=== PATIENT | male | born 1990 | race Hispanic/Latino ===

== ENCOUNTER 2017-05-24 14:28 | Emergency (ER) | payer SELFPAY ==
--- NOTE | 2017-05-24 15:22 | ED.PDOC ---
History of Present Illness - General Chief Complaint: Dental/Mouth Stated Complaint: dental pain Time Seen by Provider: 05/24/17 15:21 Source: patient, RN notes reviewed Additional Information: Pt seen by dentist yesterday, started on antibiotics. Plan is to have right molar/wisdom tooth removed on 05 June. Told by dentist to present to ED if tooth pain unbearable. Pt states it is hard to eat/drink due to the pain. He is tolerating his Abx (Amoxicillin). Pt states he has come here before for pain in another tooth and he was given a shot of Toradol and a Rx for T3 which helped with the pain. - History of Present Illness Timing/Duration: 1 week - worse since yesterday Severity: moderate Improving Factors: nothing Worsening Factors: eating, other - drinking liquids Associated Symptoms: denies symptoms Allergies/Adverse Reactions: Allergies NO KNOWN ALLERGY Allergy (Verified 05/06/16 20:13) Home Medications: Ambulatory Orders Acetamin W/Cod #3 Tab [Tylenol #3 Tab] 1 ea PO Q4-6H PRN #30 tab 05/24/17 Review of Systems - Review of Systems Constitutional: States: no symptoms reported EENTM: States: mouth pain - right lower molar region Respiratory: States: no symptoms reported Cardiology: States: no symptoms reported Gastrointestinal/Abdominal: States: no symptoms reported Genitourinary: States: no symptoms reported Musculoskeletal: States: no symptoms reported Skin: States: no symptoms reported Neurological: States: no symptoms reported Endocrine: States: no symptoms reported Hematologic/Lymphatic: States: no symptoms reported Past Medical History (General) - Patient Medical History Hx Asthma: No Hx Hypertension: No Hx Diabetes: No - Vaccination History Hx Tetanus, Diphtheria Vaccination: No Hx Influenza Vaccination: No Hx Pneumococcal Vaccination: No - Social History Hx Tobacco Use: Yes Hx Alcohol Use: Yes Hx Substance Use: No Hx Substance Use Treatment: No Hx Depression: No Family Medical History - Family History Mother Family History: Unknown Living Status: Unknown Physical Exam - Physical Exam General Appearance: Alert, Well Developed, Well Groomed, Well Hydrated, Well Nourished, Other - mild distress due to pain but he is able to cooperate with history and exam. Eye Exam: bilateral normal Ears, Nose, Throat: normal pharynx, other - right lower molar/wisdom tooth with decay Neck: non-tender, full range of motion, supple Respiratory: no respiratory distress, no accessory muscle use Cardiovascular/Chest: normal peripheral pulses, regular rate, rhythm Gastrointestinal/Abdominal: soft Extremity: normal range of motion, non-tender Neurologic: manager star II-XII nml as tested, no motor/sensory deficits, alert, normal mood/affect, oriented x 3 Skin Exam: normal color, other - mild soft tissue swelling around right inner cheek adjacent to site of dental caries. Lymphatic: no adenopathy Progress - Progress Progress: 05/24/17 16:32 Pt offered a dental block and he refused/declined. Pt given Toradol 60 mg IM x 1 instead and he is stable for discharge with Rx for T3. Departure - Departure Clinical Impression: Pain, dental Time of Disposition: 16:43 Disposition: Discharge to Home or Self Care Condition: Good Departure Forms: ED Discharge - Pt. Copy, Patient Portal Self Enrollment Instructions: DI for Dental Pain Prescriptions: Acetamin W/Cod #3 Tab [Tylenol #3 Tab] 1 ea PO Q4-6H PRN #30 tab PRN Reason: Pain -- Moderate To Severe Home Medications: Ambulatory Orders Acetamin W/Cod #3 Tab [Tylenol #3 Tab] 1 ea PO Q4-6H PRN #30 tab 05/24/17 Additional Instructions: Follow up with Dentist for definitive care.
[2017-05-24] MEDS ORDERED: HYDROcodone 5MG/APAP 325MG 1 EA TAB PO ONE (15:27)
[2017-05-24] MEDS ORDERED: KETOROLAC TROMETHAMINE INJ 60 MG/2 ML VIAL IM ONE (16:12)
[2017-05-24 17:37] VITALS: BP 129/79; TEMP 98.2; O2SAT 96
== END 2017-05-24 17:35 | disposition home or self-care (01) ==
LOC: ER 14:28
DX: K08.89 Other specified disorders of teeth and supporting structures (principal); Z87.891 Personal history of nicotine dependence

== ENCOUNTER 2017-05-24 23:07 | Emergency (ER) | payer SELFPAY ==
[2017-05-24] MEDS ORDERED: KETOROLAC TROMETHAMINE INJ 60 MG/2 ML VIAL IM ONE ×2 (23:16→23:23)
[2017-05-24] MEDS ORDERED: LIDOCAINE 1% 10 ML VIAL INJ ONE (23:16)
--- NOTE | 2017-05-24 23:24 | ED.PDOC ---
History of Present Illness - General Chief Complaint: Dental/Mouth Stated Complaint: Tooth pain Time Seen by Provider: 05/24/17 23:08 Source: patient, RN notes reviewed, Vital Signs reviewed Additional Information: Pt seen earlier today (see note for details). Pt returns to ED stating that the inferior alveolar block wore off and the pain is worse now. Pt in no apparent distress on exam. Pt told that the definitive management will still need to be from the Dentist extracting the tooth. All we can offer at this time is another Toradol 60 mg IM injection and another inferior alveolar block. Pt agreed with this plan and knows he is to continue taking his antibiotic and the T3 previously prescribed to him. - History of Present Illness Timing/Duration: 1 week, getting worse Severity: moderate Improving Factors: other - inferior alveolar block helped for 2 to 3 hours Worsening Factors: other - when the inferior alveolar block wore off Associated Symptoms: denies symptoms Allergies/Adverse Reactions: Allergies NO KNOWN ALLERGY Allergy (Verified 05/06/16 20:13) Home Medications: Ambulatory Orders Acetamin W/Cod #3 Tab [Tylenol #3 Tab] 1 ea PO Q4-6H PRN #30 tab 05/24/17 Review of Systems - Review of Systems Constitutional: States: no symptoms reported EENTM: States: mouth pain Respiratory: States: no symptoms reported Cardiology: States: no symptoms reported Gastrointestinal/Abdominal: States: no symptoms reported Genitourinary: States: no symptoms reported Musculoskeletal: States: no symptoms reported Skin: States: no symptoms reported Neurological: States: no symptoms reported Endocrine: States: no symptoms reported Hematologic/Lymphatic: States: no symptoms reported Past Medical History (General) - Patient Medical History Hx Stroke: No Hx Asthma: No Hx Cardiac Disorders: No Hx Congestive Heart Failure: No Hx Hypertension: No Hx Diabetes: No Hx Cancer: No Hx Hepatitis C: No - Vaccination History Hx Tetanus, Diphtheria Vaccination: No Hx Influenza Vaccination: No Hx Pneumococcal Vaccination: No - Social History Hx Tobacco Use: Yes Hx Chewing Tobacco Use: No Hx Alcohol Use: Yes Hx Substance Use: No Hx Substance Use Treatment: No Hx Depression: No Hx Physical Abuse: No Hx Emotional Abuse: No Hx Suspected Abuse: No Family Medical History - Family History Mother Family History: Unknown Living Status: Unknown Physical Exam - Physical Exam General Appearance: Alert, Comfortable, Well Developed, Well Groomed, Well Hydrated, Well Nourished, Other - mild discomfort noted but patient tolerated exam and procedure without difficulty Eye Exam: bilateral normal Ears, Nose, Throat: hearing grossly normal, other - Right lower molar (wisdom tooth) with obvious decay. Some adjacent soft tissue swelling - stable compared to exam several hours ago. Neck: non-tender, supple Respiratory: no respiratory distress Cardiovascular/Chest: regular rate, rhythm Gastrointestinal/Abdominal: non tender, soft Extremity: normal range of motion, non-tender Neurologic: hoseman II-XII nml as tested, no motor/sensory deficits, alert, normal mood/affect Skin Exam: normal color Lymphatic: no adenopathy Progress - Progress Progress: 05/24/17 23:36 Pt tolerated Toradol 60 mg IM x 1 and Inferior Alveolar Nerve Block reporting pain of 10/10 upon arrival and 5/10 five minutes after administration of inferior alveolar block. Pt advised to f/u with Dentist for definitive management. Departure - Departure Clinical Impression: Pain, dental Time of Disposition: 23:55 Disposition: Discharge to Home or Self Care Condition: Fair Departure Forms: ED Discharge - Pt. Copy, Patient Portal Self Enrollment Instructions: DI for Dental Pain Home Medications: Ambulatory Orders Acetamin W/Cod #3 Tab [Tylenol #3 Tab] 1 ea PO Q4-6H PRN #30 tab 05/24/17 Additional Instructions: Continue previously prescribed medications. Follow-up with Dentist for definitive management. Keep mouth rinsed clean with Listerine at least twice a day.
[2017-05-25 00:01] VITALS: BP 130/70; TEMP 98; O2SAT 95
== END 2017-05-24 23:58 | disposition home or self-care (01) ==
LOC: ER 23:07
DX: K08.89 Other specified disorders of teeth and supporting structures (principal); Z87.891 Personal history of nicotine dependence

== ENCOUNTER 2018-07-28 20:04 | Emergency (ER) | payer OTHER ==
[2018-07-28 20:27] VITALS: O2SAT 97
[2018-07-28] MEDS ORDERED: KETOROLAC TROMETHAMINE INJ 60 MG/2 ML VIAL IM ONE (20:39)
[2018-07-28] MEDS ORDERED: ORPHENADRINE CITRATE 30 MG/ML AMP IM ONE (20:39)
--- NOTE | 2018-07-28 20:50 | ED.PDOC ---
History of Present Illness - General Chief Complaint: Headache Stated Complaint: headache Time Seen by Provider: 07/28/18 20:38 Source: patient Exam Limitations: no limitations - History of Present Illness Initial Comments: C/O LEIVA X 3-4 DAYS. OCCIPITAL, CONSTANT, ONE EPISODE OF VOMITING. HAS NOT RESPONDED TO NSAIDS. OCC HAS LEIVA'S BUT OTC NSAIDS USUALLY PROVIDE GOOD RELIEF. NO HX OF TRAUMA Timing/Duration: other - 3 DAYS Quality: moderate Head Injury Location: occipital Recent Head Trauma: occasional headaches Improving Factors: nothing Worsening Factors: nothing Allergies/Adverse Reactions: Allergies NO KNOWN ALLERGY Allergy (Verified 05/06/16 20:13) Home Medications: Ambulatory Orders Indomethacin 50 mg PO TID PRN #14 cap 07/28/18 Sulfa/Trimeth 800/160 (Ds) Tab [Bactrim DS Tab] 1 ea PO BID #14 tab 07/28/18 Review of Systems - Review of Systems Constitutional: Denies: chills, fever EENTM: Denies: ear pain, nose congestion, throat pain Respiratory: Denies: cough, short of breath Cardiology: Denies: chest pain, palpitations, syncope Gastrointestinal/Abdominal: States: vomiting - X 1. Denies: abdominal pain, nausea Genitourinary: States: no symptoms reported Musculoskeletal: States: no symptoms reported Skin: States: no symptoms reported Neurological: Denies: paresthesia, weakness Endocrine: States: no symptoms reported Hematologic/Lymphatic: States: no symptoms reported Past Medical History (General) - Patient Medical History Hx Seizures: No Hx Stroke: No Hx Dementia: No Hx Asthma: No Hx of COPD: No Hx Cardiac Disorders: No Hx Congestive Heart Failure: No Hx Pacemaker: No Hx Hypertension: No Hx Thyroid Disease: No Hx Diabetes: No Hx Gastroesophageal Reflux: No Hx Renal Disease: No Hx Cancer: No Hx of HIV: No Hx Hepatitis C: No Hx MRSA: No Surgical History: no surgical history - Vaccination History Hx Tetanus, Diphtheria Vaccination: No Hx Influenza Vaccination: No Hx Pneumococcal Vaccination: No - Social History Hx Tobacco Use: Yes Hx Chewing Tobacco Use: No Hx Alcohol Use: Yes Hx Substance Use: No Hx Substance Use Treatment: No Hx Depression: No Hx Physical Abuse: No Hx Emotional Abuse: No Hx Suspected Abuse: No - Triage Comment ED Triage Comment: Occipital headache for past two days. No relief with tylenol or motrin. Causing nausea now Family Medical History - Family History Mother Family History: Unknown Living Status: Unknown Physical Exam - Physical Exam General Appearance: Alert, No apparent distress Eyes, Ears, Nose, Throat Exam: PERRL/EOMI, normal ENT inspection, TMs normal, pharynx normal Neck: non-tender, full range of motion, supple Cardiovascular/Chest: regular rate, rhythm, no murmur Respiratory: lungs clear, normal breath sounds Gastrointestinal/Abdominal: non tender, soft, no organomegaly Back Exam: normal inspection, no CVA tenderness Extremity: normal range of motion, normal inspection Mental Status: alert, oriented x 3 Motor/Sensory: no motor deficit, no sensory deficit Skin Exam: warm/dry, normal color Lymphatic: no adenopathy Progress - Progress Progress: 07/28/18 21:37 FEELS BETTER AFTER TORADOL - EKG/XRAY/CT CT: CA: OPACIFICATION L MAXILLARY SINUS Departure - Departure Clinical Impression: Cephalgia Qualifiers: Headache type: unspecified Headache chronicity pattern: acute headache Intractability: not intractable Qualified Code(s): R51 - Headache Sinusitis Qualifiers: Sinusitis location: maxillary Chronicity: acute Recurrence: non-recurrent Qualified Code(s): J01.00 - Acute maxillary sinusitis, unspecified Time of Disposition: 21:37 Disposition: Discharge to Home or Self Care Condition: Good Departure Forms: ED Discharge - Pt. Copy, Patient Portal Self Enrollment Instructions: DI for Headache Prescriptions: Indomethacin 50 mg PO TID PRN #14 cap PRN Reason: Pain Sulfa/Trimeth 800/160 (Ds) Tab [Bactrim DS Tab] 1 ea PO BID #14 tab Home Medications: Ambulatory Orders Indomethacin 50 mg PO TID PRN #14 cap 07/28/18 Sulfa/Trimeth 800/160 (Ds) Tab [Bactrim DS Tab] 1 ea PO BID #14 tab 07/28/18
[2018-07-28] MEDS ORDERED: ONDANSETRON 4 MG TAB PO ONE (20:58)
--- NOTE | 2018-07-28 21:27 | CT ---
EXAM DESCRIPTION: Head CLINICAL HISTORY: 27 years Male LEIVA. Headache since Friday on back of head, no trauma. COMPARISON: None Technique: Contiguous axial images of the brain were obtained without the administration of intravenous contrast. This exam was performed according to our departmental dose-optimization program which includes use of Automated Exposure Control, adjustment of the mA and/or kV according to patient size and/or use of iterative reconstruction technique. Findings: Brain: No acute intracranial hemorrhage. No territorial infarct. No mass effect. Ventricles: Within normal limits in size Bones: No acute osseous finding. Paranasal sinuses: Partially visualized left maxillary sinus shows complete opacification. Lack of pneumatization in the right frontal sinus, anatomical variant. Mastoid air cells: Well aerated. Soft tissues: Within normal limits [employer]ry Go Round Operator view shows no additional significant finding IMPRESSION: 1. No acute intracranial finding. 2. Partially seen left maxillary sinus shows complete opacification. Please correlate for sinus disease. Electronically signed by: Tracey Rojas MD 07/28/2018 9:25 PM CDT
[2018-07-28 21:54] VITALS: BP 147/76; TEMP 98
== END 2018-07-28 21:55 | disposition home or self-care (01) ==
LOC: ER 20:04
DX: J01.00 Acute maxillary sinusitis, unspecified (principal); R51 Headache; Z87.891 Personal history of nicotine dependence

== ENCOUNTER 2019-11-23 18:27 | Emergency (ER) | payer OTHER ==
[2019-11-23 19:03] VITALS: TEMP 98.4
[2019-11-23] MEDS ORDERED: SODIUM CHLORIDE 0.9% (FLUSH) 10 ML SYG IV PRN (19:25)
[2019-11-23] MEDS ORDERED: ONDANSETRON INJ 4 MG/2 ML VIAL IV ONE (19:25)
[2019-11-23] MEDS ORDERED: SODIUM CHLORIDE 0.9% 1000ML 1,000 ML IVS PRN (19:25)
--- NOTE | 2019-11-23 19:41 | ED.PDOC ---
History of Present Illness - General Chief Complaint: GI Problem Stated Complaint: nausea,vomited Time Seen by Provider: 11/23/19 19:24 Source: patient, RN notes reviewed, Vital Signs reviewed Exam Limitations: no limitations - History of Present Illness Timing/Duration: 24 hours Severity: moderate Improving Factors: nothing Worsening Factors: other - Standing up Associated Symptoms: nausea/vomiting Allergies/Adverse Reactions: Allergies NO KNOWN ALLERGY Allergy (Verified 05/06/16 20:13) Home Medications: Ambulatory Orders Indomethacin 50 mg PO TID PRN #14 cap 07/28/18 Sulfa/Trimeth 800/160 (Ds) Tab [Bactrim DS Tab] 1 ea PO BID #14 tab 07/28/18 Meclizine HCl [Meclizine 25] 25 mg PO Q6H #12 tab 11/23/19 Ondansetron Odt [Zofran ODT] 4 mg PO Q6HR #12 tab 11/23/19 Review of Systems - Review of Systems Constitutional: States: no symptoms reported, see HPI EENTM: States: no symptoms reported Respiratory: States: no symptoms reported Cardiology: States: no symptoms reported Gastrointestinal/Abdominal: States: see HPI, abdominal pain, nausea, vomiting Genitourinary: States: no symptoms reported Musculoskeletal: States: no symptoms reported Skin: States: no symptoms reported Neurological: States: see HPI, other - Vertigo Endocrine: States: no symptoms reported Hematologic/Lymphatic: States: no symptoms reported All other Systems: Reviewed and Negative Past Medical History (General) - Patient Medical History Hx Seizures: No Hx Stroke: No Hx Dementia: No Hx Asthma: No Hx of COPD: No Hx Cardiac Disorders: No Hx Congestive Heart Failure: No Hx Pacemaker: No Hx Hypertension: No Hx Thyroid Disease: No Hx Diabetes: No Hx Gastroesophageal Reflux: No Hx Renal Disease: No Hx Cancer: No Hx of HIV: No Hx Hepatitis C: No Hx MRSA: No - Vaccination History Hx Tetanus, Diphtheria Vaccination: No Hx Influenza Vaccination: No Hx Pneumococcal Vaccination: No - Social History Hx Tobacco Use: Yes Hx Chewing Tobacco Use: No Hx Alcohol Use: Yes Hx Substance Use: No Hx Substance Use Treatment: No Hx Depression: No Hx Physical Abuse: No Hx Emotional Abuse: No Hx Suspected Abuse: No Family Medical History - Family History Mother Family History: Unknown Living Status: Unknown Physical Exam - Physical Exam General Appearance: Alert, Anxious, Well Developed, Well Groomed, Well Hydrated, Well Nourished Eye Exam: bilateral normal Ears, Nose, Throat: hearing grossly normal, normal pharynx - Except for mildly dry mucous membranes. Neck: non-tender, full range of motion, supple, normal inspection Respiratory: chest non-tender, lungs clear, normal breath sounds, no respiratory distress, no accessory muscle use Cardiovascular/Chest: normal peripheral pulses, regular rate, rhythm, no edema, no gallop, no JVD Peripheral Pulses: radial,right: 2+, radial,left: 2+ Gastrointestinal/Abdominal: normal bowel sounds, non tender, soft, no organomegaly, no pulsatile mass Back Exam: normal inspection, no CVA tenderness, no vertebral tenderness Extremity: normal range of motion, non-tender, normal inspection Neurologic: haunted history tour guide II-XII nml as tested, no motor/sensory deficits, alert, normal mood/affect, oriented x 3 Skin Exam: normal color, warm/dry Lymphatic: no adenopathy Progress - Progress Progress: Differential diagnosis: Dehydration, posterior circulation stroke, vertigo, food poisoning among others. 11/23/19 21:16 Patient symptoms have resolved after Zofran, meclizine and IV fluids. Lab work shows dehydration. I suspect the patient has benign positional vertigo. Plan on discharge home with prescription for Zofran and meclizine. I consider posterior circulation stroke unlikely as the symptoms are transient and intermittent. Lab work does show his dehydration. Therefore will discharge the patient at this time. I discussed the plan of care with the patient he voices understanding and agreement. Leonidas Nunez M.D. #[id number] - Results/Orders Results/Orders: 11/23/19 19:25 IV Care:Saline Lock per Protoc QSHIFT Sodium Chloride 0.9% (Flush) [Saline Flush Syringe] 10 ml IV PRN PRN Sodium Chloride 0.9% 1000ML [Ns 1000 ml] 1,000 ml IVS .QD EKG Assessment ONCE 11/23/19 19:30 EKG STAT Laboratory Results - last 24 hr 11/23/19 11/23/19 11/23/19 19:10 19:10 19:40 WBC 6.6 RBC 5.48 Hgb 15.6 Hct 45.8 MCV 83.6 MCH 28.4 MCHC 34.0 RDW 13.5 Plt Count 225 MPV 8.3 Absolute Neuts (auto) 3.30 Absolute Lymphs (auto) 2.80 Absolute Monos (auto) 0.40 Absolute Eos (auto) 0.10 Absolute Basos (auto) 0.00 Neutrophils % 50.3 Lymphocytes % 42.2 Monocytes % 5.5 Eosinophils % 1.6 Basophils % 0.4 Sodium 141 Potassium 3.5 L Chloride 105 Carbon Dioxide 29 Anion Gap 10.5 L BUN 20 H Creatinine 0.86 BUN/Creatinine Ratio 23.3 H Random Glucose 93 Serum Osmolality 283.6 Calcium 9.4 Total Bilirubin 0.5 Direct Bilirubin < 0.1 Indirect Bilirubin 0.4 AST 23 ALT 28 Alkaline Phosphatase 86 Serum Total Protein 8.0 Albumin 4.4 Lipase 32 Urine Color Yellow Urine Appearance Clear Urine pH 5.5 Ur Specific [place] >= 1.030 Urine Protein Negative Urine Glucose (UA) Negative Urine Ketones Negative Urine Blood Trace-intact H Urine Nitrite Negative Urine Bilirubin Negative Urine Urobilinogen 0.2 Ur Leukocyte Esterase Negative Urine RBC 1-3 Urine WBC 0 Ur Epithelial Cells 0-1 Amorphous Sediment 3+ Urine Bacteria 0 Departure - Departure Clinical Impression: Vertigo, Dehydration Nausea and vomiting Qualifiers: Vomiting type: unspecified Vomiting Intractability: non-intractable Qualified Code(s): R11.2 - Nausea with vomiting, unspecified Time of Disposition: 21:18 Disposition: Discharge to Home or Self Care Condition: Good Departure Forms: ED Discharge - Pt. Copy, Patient Portal Self Enrollment Instructions: Vertigo (a Type of Dizziness) (DC), Dehydration, Adult (DC) Prescriptions: Ondansetron Odt [Zofran ODT] 4 mg PO Q6HR #12 tab Meclizine HCl [Meclizine 25] 25 mg PO Q6H #12 tab Home Medications: Ambulatory Orders Indomethacin 50 mg PO TID PRN #14 cap 07/28/18 Sulfa/Trimeth 800/160 (Ds) Tab [Bactrim DS Tab] 1 ea PO BID #14 tab 07/28/18 Meclizine HCl [Meclizine 25] 25 mg PO Q6H #12 tab 11/23/19 Ondansetron Odt [Zofran ODT] 4 mg PO Q6HR #12 tab 11/23/19
[2019-11-23] MEDS ORDERED: MECLIZINE HCL 12.5 MG TAB PO ONE (19:51)
[2019-11-23 20:35] VITALS: BP 115/73; O2SAT 98
== END 2019-11-23 21:32 | disposition home or self-care (01) ==
LOC: ER 18:27
DX: R42 Dizziness and giddiness (principal); R11.2 Nausea with vomiting, unspecified; E86.0 Dehydration; Z87.891 Personal history of nicotine dependence

== ENCOUNTER 2020-10-10 18:01 | Emergency (ER) | payer SELFPAY ==
--- NOTE | 2020-10-10 18:12 | ED.PDOC ---
History of Present Illness - General Time Seen by Provider: 10/10/20 18:09 Source: patient Exam Limitations: no limitations - History of Present Illness Initial Comments: The patient is a 29-year-old male presented to emergency room secondary to having twisted his lower left leg around noon today. He has been ambulatory on it since but he is having some pain. No deformity and no bruising. There is tenderness to palpation over the distal third fibula on the left. No pain over the tibia no pain over the ankle mid or distal foot. No heel pain as well. He does appear to be neurovascularly preserved. He has not had any previous injury at that site. Timing/Duration: 4-6 hours Severity: moderate Improving Factors: immobilization Worsening Factors: movement Associated Symptoms: denies symptoms Allergies/Adverse Reactions: Allergies NO KNOWN ALLERGY Allergy (Verified 05/06/16 20:13) Home Medications: Ambulatory Orders Indomethacin 50 mg PO TID PRN #14 cap 07/28/18 Sulfa/Trimeth 800/160 (Ds) Tab [Bactrim DS Tab] 1 ea PO BID #14 tab 07/28/18 Meclizine HCl [Meclizine 25] 25 mg PO Q6H #12 tab 11/23/19 Ondansetron Odt [Zofran ODT] 4 mg PO Q6HR #12 tab 11/23/19 Review of Systems - Review of Systems Constitutional: States: no symptoms reported EENTM: States: no symptoms reported Respiratory: States: no symptoms reported Cardiology: States: no symptoms reported Gastrointestinal/Abdominal: States: no symptoms reported Genitourinary: States: no symptoms reported Musculoskeletal: States: see HPI Skin: States: no symptoms reported Neurological: States: no symptoms reported Endocrine: States: no symptoms reported All other Systems: No Change from Baseline Past Medical History (General) - Patient Medical History Hx Seizures: No Hx Stroke: No Hx Dementia: No Hx Asthma: No Hx of COPD: No Hx Cardiac Disorders: No Hx Congestive Heart Failure: No Hx Pacemaker: No Hx Hypertension: No Hx Thyroid Disease: No Hx Diabetes: No Hx Gastroesophageal Reflux: No Hx Renal Disease: No Hx Cancer: No Hx of HIV: No Hx Hepatitis C: No Hx MRSA: No - Vaccination History Hx Tetanus, Diphtheria Vaccination: No Hx Influenza Vaccination: No Hx Pneumococcal Vaccination: No - Social History Hx Tobacco Use: Yes Hx Chewing Tobacco Use: No Hx Alcohol Use: Yes Hx Substance Use: No Hx Substance Use Treatment: No Hx Depression: No Hx Physical Abuse: No Hx Emotional Abuse: No Hx Suspected Abuse: No Family Medical History - Family History Mother Family History: Unknown Living Status: Unknown Physical Exam - Physical Exam General Appearance: Alert, Comfortable, No apparent distress Eye Exam: bilateral normal Ears, Nose, Throat: hearing grossly normal Neck: full range of motion Respiratory: no respiratory distress, no accessory muscle use Cardiovascular/Chest: normal peripheral pulses, no edema Peripheral Pulses: dorsalis pedis,right: 2+, dorsalis pedis,left: 2+ Rectal Exam: deferred Extremity: no pedal edema, no calf tenderness, normal capillary refill, other - See history of present illness. 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 X-ray shows no evidence of any fracture. This is essentially a high lateral ankle sprain. He does need to ambulate carefully. He can wrap this during the day while he is ambulatory on it as it may provide some relief. Motrin Tylenol can be used as well for discomfort. He will likely have some discomfort for the next 2 to 3 weeks. ER warnings are given. Further bracing is not recommended at this point. Obviously if he is worsening rather than improving over this timeframe then additional imaging may be warranted. janna hsieh [phone] - Results/Orders Results/Orders: X-ray of the left tib-fib shows no evidence of any fracture. Departure - Departure Clinical Impression: High ankle sprain of left lower extremity Qualifiers: Encounter type: initial encounter Qualified Code(s): S93.492A - Sprain of other ligament of left ankle, initial encounter Disposition: Discharge to Home or Self Care Condition: Fair Instructions: Ankle Sprain Diet: regular diet Activity: no exercise Home Medications: Ambulatory Orders Indomethacin 50 mg PO TID PRN #14 cap 10/02/18 Sulfa/Trimeth 800/160 (Ds) Tab [Bactrim DS Tab] 1 ea PO BID #14 tab 07/28/18 Meclizine HCl [Meclizine 25] 25 mg PO Q6H #12 tab 11/23/19 Ondansetron Odt [Zofran ODT] 4 mg PO Q6HR #12 tab 11/23/19 Additional Instructions: The patient is a 29-year-old male presented emergency room secondary to left lateral lower leg pain. X-ray shows no evidence of any fracture. This is essentially a high lateral ankle sprain. He does need to ambulate carefully. He can wrap this during the day while he is ambulatory on it as it may provide some relief. Motrin Tylenol can be used as well for discomfort. He will likely have some discomfort for the next 2 to 3 weeks. ER warnings are given. Further bracing is not recommended at this point. Obviously if he is worsening rather than improving over this timeframe then additional imaging may be warranted.
[2020-10-10 18:13] VITALS: TEMP 97.8
[2020-10-10 18:45] VITALS: BP 120/72; O2SAT 95
--- NOTE | 2020-10-10 19:18 | RAD ---
EXAM: XR Left Tibia and Fibula, 2 Views CLINICAL HISTORY: The patient is 29 years old and is Male; distal 1/3 tibfib pain TECHNIQUE: Two views of the left tibia and fibula. COMPARISON: No relevant prior studies available. FINDINGS: Bones/joints: Unremarkable. No acute fracture. No dislocation. Soft tissues: Unremarkable. No radiopaque foreign body. IMPRESSION: No acute findings. Electronically signed by: Tracey Lr MD 10/10/2020 7:17 PM [facility]
== END 2020-10-10 18:40 | disposition home or self-care (01) ==
LOC: ER 18:01
DX: S93.492A Sprain of other ligament of left ankle, initial encounter (principal); Z87.891 Personal history of nicotine dependence; X58.XXXA Exposure to other specified factors, initial encounter; Y92.9 Unspecified place or not applicable